=== PATIENT | male | born 1995 | race Caucasian/White ===

== ENCOUNTER 2020-02-28 12:36 | Outpatient (REF) | payer BC, SELFPAY ==
--- NOTE | 2020-02-28 12:42 | XR_ITS ---
EXAMINATION: XR CHEST CLINICAL INFORMATION: Covid 19 infection COMPARISON: None TECHNIQUE: 2 views of the chest were obtained. FINDINGS: The cardiac and mediastinal contours are normal. The lungs are clear. There is no pleural effusion. Bony structures are normal. XR/XR chest 2V IMPRESSION: Normal chest.
[2020-02-28 14:02] LABS: Basophils Percent Auto 0.2 % (0-2); Eosinophils Percent Auto 0.9 % (0-4); Hematocrit 43.5 % (42-52); Hemoglobin 14.1 g/dl (14.0-18.0); Imm Gran Abs Auto 0.02 X10*3/uL (0.00-0.03); Imm Gran Pct Auto 0.4 % (0.0-0.4); Lymphocytes Absolute Auto 1.7 X10*3/uL (1.2-4.9); Lymphocytes Percent Auto 36.9 % (20-40); Mean Corpuscular HGB Conc 32.4 g/dl (31.0-36.0); Mean Corpuscular Hemoglobin 26.9 pg (27.0-33.0); Mean Corpuscular Volume 82.9 fL (80-98); Mean Platelet Volume 10.7 fL (9.4-12.4); Monocytes Absolute Auto 0.4 X10*3/uL (0.1-1.2); Monocytes Percent Auto 8.8 % (2-11); Neutrophils Absolute Auto 2.4 X10*3/uL (2.0-8.3); Neutrophils Percent Auto 52.8 % (45-73); Platelet Count 350 X10*3/uL (160-400); Red Blood Count 5.25 X10*6/uL (4.60-5.80); Red Cell Distribution Width 12.5 % (11.0-16.0); White Blood Count 4.5 X10*3/uL (4.8-10.8)
[2020-02-28 14:03] LABS: MANUAL DIFF FLAG NO
[2020-02-28 14:24] LABS: Anion Gap 13 (12-20); Blood Urea Nitrogen 12 mg/dL (9-16); Calcium 9.3 mg/dL (8.4-10.2); Carbon Dioxide 30 mmol/L (22-29); Chloride 103 mmol/L (96-108); Estimated Glomerular Filt Rate > 60; Glucose Random 89 mg/dL (60-115); Potassium 4.7 mmol/l (3.3-5.1); Sodium 141 mmol/L (135-145)
== END 2020-02-28 12:37 | disposition home or self-care (01) ==
LOC: HO.HMGCX 12:36
PROVIDERS: PCP Internal Medicine; Visit Provider Internal Medicine
DX: U07.1 COVID-19 (principal)
CPT/HCPCS: 36415; 71046; 80048; 85025

== ENCOUNTER 2020-09-19 11:45 | Outpatient (REF) | payer BC, SELFPAY ==
[2020-09-19 14:34] LABS: HBS Num1 0.18 mIU/mL (0-7.99); HIV AB/AG Nonreactive (Nonreactive); HIV Num 1 0.06 S/CO (0.00-0.99); ~Hepatitis B Surface Antibody NONREACTIVE (Nonreactive)
[2020-09-19 14:37] LABS: Syphilis Screen Nonreactive (Nonreactive)
[2020-09-19 14:38] LABS: HBc Num1 0.06 S/CO (0.00-0.79); HBsAGNum1 0.15 S/CO (0.00-0.99); Hepatitis A Antibody IgM 0.17 Index (0-0.79); Hepatitis B Core Antibody Nonreactive (Nonreactive); Hepatitis B Surface Antigen Negative (Negative); ~Hepatitis A Antibody IgM Nonreactive (Nonreactive); ~Hepatitis C Antibody Nonreactive (Nonreactive)
[2020-09-20 21:32] LABS: Herpes Simplex Type 2 IgG <0.90 index
== END 2020-09-19 11:46 | disposition home or self-care (01) ==
LOC: HO.HMGCLDS 11:45
PROVIDERS: PCP Internal Medicine; Visit Provider Internal Medicine
DX: Z11.3 Encounter for screening for infections with a predominantly sexual mode of transmission (principal)
CPT/HCPCS: 36415; 86695; 86696; 86704; 86706; 86709; 86780; 86803; 87340; 87389

== ENCOUNTER 2020-11-13 11:10 | Outpatient (REF) | payer BC, SELFPAY ==
--- NOTE | ~2020-11-13 | XR_ITS ---
EXAMINATION: XR CHEST CLINICAL INFORMATION: Nasal sinuses disorder COMPARISON: February 28, 2020 TECHNIQUE: 2 views of the chest were obtained. FINDINGS: No significant abnormality is noted involving the heart, lungs, mediastinum, bony thorax or soft tissues. XR/XR chest 2V IMPRESSION: No acute disease.
== END 2020-11-13 11:11 | disposition home or self-care (01) ==
LOC: HO.HMGCX 11:10
PROVIDERS: PCP Internal Medicine; Visit Provider Physician Assistant Medical
DX: Z13.89 Encounter for screening for other disorder (principal)
CPT/HCPCS: 71046

== ENCOUNTER 2020-12-11 09:59 | Outpatient (REF) | payer BC, SELFPAY ==
--- NOTE | ~2020-12-11 | CT_ITS ---
CT SINUS WITHOUT CONTRAST CLINICAL INFORMATION: Deviated septum. Nasal polyp. COMPARISON: None TECHNIQUE: A multidetector CT acquisition of the sinuses is obtained without contrast. This CT examination was performed using dose optimization techniques as appropriate, variously including the following: *Automated exposure control *Adjustment of mA and/or kV according to patient size (this includes techniques or standardized protocols for targeted exams where dose is matched to indication/reason for exam; i.e. extremities or head) *Use of iterative reconstruction technique FINDINGS: There is a small retention cyst within the right maxillary sinus. There is mild mucosal thickening throughout the ethmoid air cells bilaterally. The remaining paranasal sinuses are clear. Pneumatization of the optic struts and anterior clinoid processes bilaterally. Major sinus drainage pathways are maintained. The fovea ethmoidalis and olfactory grooves are symmetric in depth. The bony orbits are intact. There is significant rightward deviation of the nasal septum. The internal carotid arteries remain well covered with bone. Mastoid air cells and middle ear cavities are clear. TMJs are unremarkable. There is no periapical disease. Adenoid hypertrophy results in nasopharyngeal narrowing. CT/CT sinus wo IV con IMPRESSION: - There is a small retention cyst within the right maxillary sinus and there is mild mucosal thickening within the ethmoid air cells bilaterally. The remaining paranasal sinuses are clear. - There is significant rightward deviation of the nasal septum. - Adenoid hypertrophy results in nasopharyngeal narrowing.
== END 2020-12-11 10:00 | disposition home or self-care (01) ==
LOC: HO.CT 09:59
PROVIDERS: PCP Internal Medicine; Visit Provider Otolaryngology
DX: J34.2 Deviated nasal septum (principal); J33.9 Nasal polyp, unspecified
CPT/HCPCS: 70486

== ENCOUNTER 2021-01-01 14:45 | Outpatient (REF) | payer BC, SELFPAY ==
[2021-01-01 15:34] LABS: MANUAL DIFF FLAG NO
[2021-01-01 15:48] LABS: Basophils Percent Auto 0.2 % (0-2); Eosinophils Absolute Auto 0.1 X10*3/uL (0.0-0.4); Eosinophils Percent Auto 0.8 % (0-4); Hematocrit 43.4 % (42.0-52.0); Hemoglobin 14.5 g/dl (14.0-18.0); Imm Gran Abs Auto 0.03 X10*3/uL (0.00-0.03); Imm Gran Pct Auto 0.5 % (0.0-0.4); Lymphocytes Absolute Auto 1.1 X10*3/uL (1.2-4.9); Lymphocytes Percent Auto 17.3 % (20-40); Mean Corpuscular HGB Conc 33.4 g/dl (31.0-36.0); Mean Corpuscular Hemoglobin 27.7 pg (27.0-33.0); Mean Platelet Volume 10.3 fL (9.4-12.4); Monocytes Absolute Auto 0.8 X10*3/uL (0.1-1.2); Monocytes Percent Auto 12.9 % (2-11); Neutrophils Absolute Auto 4.2 x10*3/uL (2.0-8.3); Neutrophils Percent Auto 68.3 % (45-73); Platelet Count 242 X10*3/uL (160-400); Red Blood Count 5.23 X10*6/uL (4.60-5.80); Red Cell Distribution Width 12.4 % (11.0-16.0); White Blood Count 6.1 X10*3/uL (4.8-10.8)
== END 2021-01-01 14:46 | disposition home or self-care (01) ==
LOC: HO.LAB 14:45
PROVIDERS: PCP Internal Medicine; Visit Provider Internal Medicine Pulmonary Disease
DX: R06.09 Other forms of dyspnea (principal); Z91.09 Other allergy status, other than to drugs and biological substances; Z01.82 Encounter for allergy testing
CPT/HCPCS: 36415; 82785; 85025; 86003

== ENCOUNTER 2021-01-08 08:02 | Outpatient (REF) | payer BC, SELFPAY ==
--- NOTE | 2021-01-08 17:35 | PFT_ITS ---
FLOWS: FEV1 93% of predicted at 4.28 L. FVC 85% of predicted at 4.62 L. FEV1 to FVC ratio of 0.93. No bronchodilator response except in small to medium airways. LUNG VOLUMES: Total lung capacity 95% of predicted at 6.37 L. Residual volume 124% of predicted at 1.81 L. Slow vital capacity 87% of predicted at 4.56 L. Expiratory reserve volume 119% of predicted at 2.09 L. Diffusion capacity is normal. IMPRESSION: No obstructive or restrictive ventilatory defect. No bronchodilator response except in small to medium airways. Increased residual volume suggests air trapping. Odell Perez MD AP/MODL / [id number] MTDD
== END 2021-01-08 08:03 | disposition home or self-care (01) ==
LOC: HO.RESP 08:02
PROVIDERS: PCP Internal Medicine; Visit Provider Internal Medicine Pulmonary Disease
DX: R06.00 Dyspnea, unspecified (principal)
CPT/HCPCS: 94060; 94727; 94729

== ENCOUNTER → 2021-01-22 10:32 | Outpatient (BNVA) | payer BC, SELFPAY | PROVIDERS: PCP Internal Medicine; Visit Provider Internal Medicine Pulmonary Disease | DX: Z91.09 Other allergy status, other than to drugs and biological substances (principal); R06.00 Dyspnea, unspecified ==

== ENCOUNTER → 2021-04-09 11:47 | Outpatient (BNVA) | payer BC, SELFPAY | PROVIDERS: PCP Internal Medicine; Visit Provider Internal Medicine Pulmonary Disease ==

== ENCOUNTER → 2021-04-24 11:48 | Outpatient (BNVA) | payer BC, SELFPAY | PROVIDERS: PCP Internal Medicine; Referring Provider Internal Medicine; Visit Provider Physician Assistant ==

== ENCOUNTER 2021-05-31 09:32 | Outpatient (REF) | payer BC, SELFPAY ==
--- NOTE | ~2021-05-31 | FL_ITS ---
EXAMINATION: FL BARIUM SWALLOW CLINICAL INFORMATION: Gastroesophageal reflux disease. COMPARISON: None TECHNIQUE: Barium swallow examination is performed using fluoroscopic evaluation in addition to multiple fluoroscopic spot views. The patient is imaged both upright and prone and using both thick and thin sulfate along with effervescent granules. A barium tablet was also administered. Fluoroscopy time: 0.8 minutes DAP: 2.8 Gycm2 Images: 57 FINDINGS: The swallowing mechanism is normal. No aspiration or penetration is seen. The esophagus is normal-appearing. Esophageal motility is normal. No esophageal reflux, hernia, mass or stricture is seen. The barium tablet passed freely into the stomach. The folds in the stomach appear prominent. FL/FL barium swallow IMPRESSION: Normal-appearing esophagus. No gastroesophageal reflux seen. Prominent folds in the stomach questionable for gastritis or hyperacidity.
== END 2021-05-31 09:33 | disposition home or self-care (01) ==
LOC: HO.XRAY 09:32
PROVIDERS: PCP Internal Medicine; Visit Provider Physician Assistant
DX: K21.9 Gastro-esophageal reflux disease without esophagitis (principal); J45.40 Moderate persistent asthma, uncomplicated; J32.9 Chronic sinusitis, unspecified
CPT/HCPCS: 74220

== ENCOUNTER → 2021-06-18 11:53 | Outpatient (BNVA) | payer BC, SELFPAY | PROVIDERS: PCP Internal Medicine; Visit Provider Physician Assistant | DX: Z13.89 Encounter for screening for other disorder (principal) ==

== ENCOUNTER 2022-08-21 13:53 | Outpatient (REF) | payer BC, SELFPAY ==
[2022-08-22 13:33] LABS: H Pylori Breath Test Negative (Negative)
== END 2022-08-21 13:54 | disposition home or self-care (01) ==
LOC: HO.LNP 13:53
PROVIDERS: PCP Internal Medicine; Visit Provider Physician Assistant
DX: A04.8 Other specified bacterial intestinal infections (principal); K21.9 Gastro-esophageal reflux disease without esophagitis
CPT/HCPCS: 83013

== ENCOUNTER 2022-10-08 13:55 | Outpatient (AMB) | payer BC, SELFPAY ==
[2022-10-08 14:04] VITALS: BP 123/67; PULSE 61; BMI 23.0
--- NOTE | 2022-10-08 14:04 | MHC.OFFVIS ---
Intake Vital Signs 10/08/22 14:04 Height 5 ft 9 in Weight 156 lb BMI 23.0 BP 123/67 Blood Pressure Location Lt brachial Position Sitting Pulse 61 Intake Visit Reasons: 6 week fu Allergies dog dander Allergy (Unknown, Verified 10/08/22 14:03) Sneezing dust mites Allergy (Unknown, Uncoded 02/06/21 16:06) Unknown HPI HPI Comments History of Present Illness Details A 27 y/o male f/u with reflux-he has PND- he forgot to call ENT to reschedule- He is no longer taking omeprazole- he stopped- ineffective-does not have actual heartburn has more nasal congestion RQ / flank pain after lifting beer kegs at work-on Thu- its [id number] Appetite is good Bowels are normal No nausea, vomiting, hematemesis, hematochezia, no hematuria, fever chills PFSH Medical History Respiratory tract infection due to COVID-19 virus Surgical History No pertinent past surgical history Social History Household Members Other:: single Housing: House Patient Tobacco Use Status: Never used Tobacco Second Hand Smoke Exposure: No Current occupational status: employed Current occupation: fast food delivery driver- Physical Exam Vital Signs: Last Vital Signs Pulse 61 10/08/22 14:04 BP 123/67 10/08/22 14:04 BMI result Body Mass Index 23.0 Const General: cooperative, healthy appearing and comfortable Orientation/consciousness: patient oriented x3 Limitations: no limitations Eyes Sclerae: sclerae normal Resp Effort & Inspection: normal respiratory effort and able to speak in complete sentences Auscultation: clear to auscultation bilaterally, no rales, no rhonchi and no wheezes Cardio Rate: regular rate Rhythm: regular rhythm Heart sounds: S1 normal heart sound present and S2 normal heart sound present GI Palpation (GI): Soft to palpation, nontender, no guarding and No hepatosplenomegaly present Percussion: Yes normal to percussion Auscultation: normal bowel sounds Skin General skin exam: no rashes or lesions noted Neuro General: patient oriented x3 Extrem General: Yes full ROM Psych Appearance: grossly normal and well kempt Mental Status: mental status grossly normal Speech and movement: Normal speech and movement present and Clear speech present Affect: Anxious affect present Attitude: cooperative Thought process: Circumstantial thought process present Thought content: Normal thought content present Insight: Good insight present (Psych) Judgement: Good judgement present (Psych) Assessment & Plan Assessment & Plan (1) Asthma: Code(s): J45.909 - Unspecified asthma, uncomplicated Plan: Follow directed inhaler use (2) Asthma, moderate persistent: Comment: Does not use inhalers, follows up PCP Code(s): J45.40 - Moderate persistent asthma, uncomplicated (3) Cough: Comment: May have overlapping however not typical symptoms reflux Discontinued PPI symptoms unchanged Admits to postnasal drip Has asthma not using inhalers Encouraged reassessment Code(s): R05.9 - Cough, unspecified (4) Chronic sinusitis: Code(s): J32.9 - Chronic sinusitis, unspecified Plan: Follow-up ENT/ (5) Post-nasal drip: Comment: Intermittent cough-ENT no further med Code(s): R09.82 - Postnasal drip (6) Abdominal pain: Comment: Vague -R-flank after heavy lifting intermittent, does not interfere with ADL-no urinary symptoms Nontender on exam Code(s): R10.9 - Unspecified abdominal pain Plan: Monitor symptoms if worsens see PCP Orders: Orders Comprehensive Met. Panel 10/08/22 K58.9 - Irritable bowel syndrome without diarrhea Complete Blood Count Auto Diff 10/08/22 R10.9 - Unspecified abdominal pain Referrals Ear/Nose/Throat Referral J32.9 - Chronic sinusitis, unspecified, J45.40 - Moderate persistent asthma, uncomplicated, J45.909 - Unspecified asthma, uncomplicated, R05.9 - Cough, unspecified, R09.82 - Postnasal drip Patient Instructions: 27-year-old male vague GI/respiratory symptoms- He will follow back with PCP -further evaluation with asthma-did encourage use of inhalers would likely be beneficial Continue to monitor flank pain-avoid heavy lifting Ibuprofen as needed with food-as it has been beneficial Coding Level of Care Code Est Pt Level 3 (17574) Diagnoses Asthma J45.909 Asthma, moderate persistent J45.40 Cough R05.9 Chronic sinusitis J32.9 Post-nasal drip R09.82 Abdominal pain R10.9 Time Spent (min) 30
== END 2022-10-08 15:54 | disposition home or self-care (01) ==
PROVIDERS: PCP Internal Medicine; Visit Provider Physician Assistant
DX: J45.909 Unspecified asthma, uncomplicated (principal); J45.40 Moderate persistent asthma, uncomplicated; R05.9 Cough, unspecified; J32.9 Chronic sinusitis, unspecified; R09.82 Postnasal drip; R10.9 Unspecified abdominal pain
CPT/HCPCS: 99213

== ENCOUNTER 2022-10-08 13:55 | Outpatient (REF) | payer BC, SELFPAY ==
[2022-10-08 15:10] LABS: MANUAL DIFF FLAG NO
[2022-10-08 15:45] LABS: Basophils Percent Auto 0.2 % (0-2); Eosinophils Absolute Auto 0.1 X10*3/uL (0.0-0.4); Eosinophils Percent Auto 1.1 % (0-4); Hematocrit 45.1 % (42.0-52.0); Hemoglobin 14.7 g/dl (14.0-18.0); Imm Gran Abs Auto 0.01 X10*3/uL (0.00-0.03); Imm Gran Pct Auto 0.2 % (0.0-0.4); Lymphocytes Absolute Auto 1.9 X10*3/uL (1.2-4.9); Lymphocytes Percent Auto 36.5 % (20-40); Mean Corpuscular HGB Conc 32.6 g/dl (31.0-36.0); Mean Corpuscular Hemoglobin 27.5 pg (27.0-33.0); Mean Corpuscular Volume 84.5 fL (80.0-98.0); Mean Platelet Volume 10.7 fL (9.4-12.4); Monocytes Absolute Auto 0.3 X10*3/uL (0.1-1.2); Monocytes Percent Auto 6.3 % (2-11); Neutrophils Absolute Auto 2.9 x10*3/uL (2.0-8.3); Neutrophils Percent Auto 55.7 % (45-73); Platelet Count 257 X10*3/uL (160-400); Red Blood Count 5.34 X10*6/uL (4.60-5.80); Red Cell Distribution Width 12.7 % (11.0-16.0); White Blood Count 5.2 X10*3/uL (4.8-10.8)
[2022-10-08 16:12] LABS: Alanine Aminotransferase 32 U/L (0-40); Albumin Level 4.5 g/dL (3.5-5.0); Alkaline Phosphatase 69 U/L (39-117); Anion Gap 11 (12-20); Aspartate Amino Transferase 23 U/L (5-37); Bilirubin Total 0.2 mg/dL (0.0-1.0); Blood Urea Nitrogen 16 mg/dL (9-16); Calcium 9.9 mg/dL (8.4-10.2); Carbon Dioxide 28 mmol/L (22-29); Chloride 105 mmol/L (96-108); Estimated Glomerular Filt Rate > 60; Glucose Random 88 mg/dL (60-115); Potassium 4.1 mmol/L (3.3-5.1); Sodium 140 mmol/L (135-145); Total Protein 8.1 g/dL (6.5-8.0)
== END 2022-10-08 13:56 | disposition home or self-care (01) ==
LOC: HO.LAB 13:55
PROVIDERS: PCP Internal Medicine; Visit Provider Physician Assistant
DX: R10.9 Unspecified abdominal pain (principal); K58.9 Irritable bowel syndrome, unspecified
CPT/HCPCS: 36415; 80053; 85025

== ENCOUNTER 2025-02-22 14:00 | Outpatient (AMB) | payer BC, SELFPAY ==
[2025-02-22 14:04] VITALS: BP 120/64; PULSE 66; TEMP 36.7; O2SAT 100; BMI 24.5
--- NOTE | 2025-02-22 14:04 | MHC.PC.OV ---
Vital Signs 02/22/25 14:04 Height 5 ft 9 in Weight 166 lb BMI 24.5 BP 120/64 Blood Pressure Location Lt brachial Position Sitting Pulse 66 Pulse Source Pulse Oximeter Temp 98.0 F Temp Source Oral Pulse Oximetry (%) 100 Oxygen Delivery Method Room Air Intake Visit Reasons: Annual PE inactive ins check w OA Allergies dog dander Allergy (Unknown, Verified 02/22/25 14:05) Sneezing dust mites Allergy (Unknown, Uncoded 02/22/25 14:05) Unknown Medication List - Last Reconciled 02/22/25 by Lisset Dietz MD No Known Home Meds Tobacco use date assessed: 02/22/25 Dental Screening Dental Screen Date: 02/22/25 Did you have a dental visit in the last 12 months?: Yes Did you have a dental problem in the last 6 months where you did not have access to dental care?: No Was dental information given to patient?: Patient has dentist HPI HPI Comments History of Present Illness Details History of Present Illness The patient is a 29 year old male presenting with an annual physical examination and overall checkup. Chest Pain and Dyspnea: - The patient reports a recent episode of constant, left-sided chest pain that lasted for two to three weeks and occurred approximately two weeks ago. - The pain was rated as a 3 or 4 out of 10 in severity and was associated with shortness of breath. - He denies any radiation of the pain to his shoulder or arm. - The pain was not affected by eating and resolved spontaneously without any treatment. - He states that similar episodes have occurred in the past, lasting for one to two weeks. Foot Pain and Swelling: - The patient reports that his feet hurt frequently, which he attributes to being on his feet often. - He notes that his feet swell up after a long day. 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 Hypercholesterolemia: - Lab work from 2022 indicated slightly elevated cholesterol. - The patient reports eating a poor diet with a lot of fast food. Allergies to dust mite Causing nasal congestion and difficulty breathing Has not been using any nasal spray or antihistamine at this time Medical History: - Hypercholesterolemia based on labs from 2022. - History of recurrent episodes of chest pain. Social History: - The patient denies drinking alcohol or smoking. - His diet consists of a lot of fast food, as he is a trucking contractor and is on the road often. - He lives with his daughter and fianc??e. Family History: - The patient's sister has kidney disease. Health Maintenance - The patient is here for an annual physical exam. - Recommended to repeat lab work, which was last done in 2022. - Discussed dietary modifications, including avoiding fast food, spicy food, and tomatoes to manage cholesterol and acid reflux symptoms. - Blood tests will include screening for kidney disease due to a positive family history. - BMI is normal at 24.5. Medications - The patient reports taking no medications. Employment - The patient works as a trucking contractor and has been doing so since he was 19 years old. - He drives straight trucks and is on the road frequently. FOR[facility], LAT[facility] Medical History Respiratory tract infection due to COVID-19 virus Surgical History Hx of appendectomy Hx of tonsillectomy Social History Household Members Other:: single Housing: House Patient Tobacco Use Status: Never used Tobacco e-Cigarette/Vaping Use: Never Used Second Hand Smoke Exposure: No Current occupational status: employed Current occupation: power screwdriver operator- Cognitive needs: No Hearing needs: No Vision needs: No Questionnaire Thrive Questionnaire Date Thrive assessed: 09/18/20 I am a: Patient What is your living situation today?: I have a steady place to live Within the past 12 months, did the food you bought not last and you didn't have the money to get more?: Never true Within the past 12 months, did you worry whether your food would run out before you got money to buy more?: Never true Do you have trouble paying for medicines?: No Do you have trouble getting transportation to medical appointments?: No THRIVE Score: 0 AUDIT C Alcohol Use Questionnaire (AUDIT-C) 1. How often do you have a drink containing alcohol?: Never 3. How often do you have six or more drinks on one occasion?: Never Total Score: 0 Score Reviewed/Action Taken: Yes Review of Systems Narrative Review of Systems - General: No fever no chills - Neurological: No headaches no dizziness - Ear nose throat: No sore throat no hearing difficulty no ear pain - Cardiovascular: No syncope, no palpitations - Gastrointestinal: No nausea vomiting or diarrhea - Endocrine: No polyuria polydipsia no heat intolerance - Genitourinary: No dysuria - Skin: No new complaints Physical exam (Primary Care) Vital Signs: Last Vital Signs Temp 98.0 F 02/22/25 14:04 Pulse 66 02/22/25 14:04 BP 120/64 02/22/25 14:04 Pulse Ox 100 02/22/25 14:04 Oxygen Delivery Method Room Air 02/22/25 14:04 BMI result Body Mass Index 24.5 Tobacco/Smoking Status: Tobacco use Status Tobacco use date assessed 02/22/25 02/22/25 14:12 Patient Tobacco Use Status Never used Tobacco 02/22/25 14:09 e-Cigarette/Vaping Use Never Used 02/22/25 14:12 Thrive Assessment: Date of Thrive Assessment Date Thrive assessed 09/18/20 02/22/25 14:09 Narrative Diagnostic results - Labs (from 2022): Slightly elevated cholesterol. - Tests and Diagnostics: EKG showed normal sinus rhythm with no acute findings. Physical Exam General: Cooperative, healthy appearing, comfortable, no acute distress Orientation: Patient oriented x3 Head: Normal to inspection Ears: Within normal limit visually Nose: Normal external nose present Face and sinus: Normal facial exam Eyes: Appearance normal, extraocular movement intact pupils reactive Neck: Normal visual inspection and supple Respiratory: Normal respiratory effort and able to speak in complete sentences. Clear to auscultation, no stridor Cardiovascular: S1 and S2 RRR, EKG shows normal sinus rhythm no acute findings GI: Normal to inspection. Soft to palpation , epigastric discomfort with pressure, BS + Skin: Turgor normal, no acute findings Neuro: Patient oriented x3, motor sensory intact, balance intact, tandem pass Extremities: Normal to inspection, ROM intact . Office Procedures EKG [id number], Complete Coding Level of Care Code Est Pt Level 4 (87150) Est Pt Prev Care 18-39y(69096) Diagnoses Encounter for general adult medical examination with abnormal findings Z00.01 Other chest pain R07.89 Chest pain type: other chest pain Epigastric discomfort R10.13 House dust mite allergy Z91.09 Non-seasonal allergic rhinitis, unspecified trigger J30.89 Allergic rhinitis seasonality: non-seasonal Allergic rhinitis trigger: unspecified CPT Codes EKG - CPT: 60266-[id number], Complete ([id number]) Assessment & Plan Assessment & Plan (1) Encounter for general adult medical examination with abnormal findings: Code(s): Z00.01 - Encounter for general adult medical examination with abnormal findings Category: Medical (2) Chest pain: Code(s): R07.9 - Chest pain, unspecified Category: Medical Qualifiers: Chest pain type: other chest pain Qualified Code(s): R07.89 - Other chest pain (3) Epigastric discomfort: Code(s): R10.13 - Epigastric pain Category: Medical (4) House dust mite allergy: Code(s): Z91.09 - Other allergy status, other than to drugs and biological substances Category: Medical (5) Allergic rhinitis: Code(s): J30.9 - Allergic rhinitis, unspecified Category: Medical Qualifiers: Allergic rhinitis seasonality: non-seasonal Allergic rhinitis trigger: unspecified Qualified Code(s): J30.89 - Other allergic rhinitis Plan Patient Instructions - Take omeprazole for two to three months, and then use it as needed for your symptoms. - It is very important to avoid fast food, spicy food, and tomatoes to help with your stomach acid and chest discomfort. - You will need to get blood tests done. Please do not eat or drink anything except water for 8 to 10 hours before the test. - start using Zyrtec pzlo-[id number] daily and fluticasone nasal spray every night - The lab is located next door and is open on workdays from 6:30 AM to 3:30 PM. You can walk in without an appointment. f/u 2 M Orders: Orders Complete Blood Count Auto Diff Today R07.9 - Chest pain, unspecified, R10.13 - Epigastric pain, Z00.01 - Encounter for general adult medical examination with abnormal findings Comprehensive [place]. Panel Fast Today R07.9 - Chest pain, unspecified, R10.13 - Epigastric pain, Z00.01 - Encounter for general adult medical examination with abnormal findings Lipid Panel Today R07.9 - Chest pain, unspecified, R10.13 - Epigastric pain, Z00.01 - Encounter for general adult medical examination with abnormal findings Vitamin D 25-OH (D2 and D3) Today R07.9 - Chest pain, unspecified, R10.13 - Epigastric pain, Z00.01 - Encounter for general adult medical examination with abnormal findings Medications: New pantoprazole 20 mg PO DAILY 60 tabs 0RF 60 days cetirizine (Zyrtec) 10 mg PO DAILY PRN 60 caps 0RF allergy symptoms Discontinued pantoprazole Discontinued Reason: Patient Completed Course 20 mg PO QAM 30 tabs 6RF
== END 2025-02-22 15:31 | disposition home or self-care (01) ==
LOC: HO.HMCC 14:01
PROVIDERS: PCP Internal Medicine; Visit Provider Internal Medicine
DX: Z00.01 Encounter for general adult medical examination with abnormal findings (principal); R07.89 Other chest pain; R10.13 Epigastric pain; Z91.09 Other allergy status, other than to drugs and biological substances; J30.89 Other allergic rhinitis

== ENCOUNTER → 2025-02-22 14:00 | Outpatient (BNVA) | payer BC, SELFPAY | PROVIDERS: PCP Internal Medicine; Visit Provider Internal Medicine | DX: R07.89 Other chest pain (principal) | CPT/HCPCS: 93005 ==